=== PATIENT | male | born 1985 | race Two or more races ===

== ENCOUNTER 2017-09-29 14:41 | Emergency (ER) | payer OTHER ==
[~2017-09-29] VITALS: Ht 182.9 cm; Wt 95.3 kg
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
[2017-09-29] MEDS ORDERED: IBUPROFEN600 MG ORAL (16:44)
[2017-09-29] MEDS ORDERED: CYCLOBENZAPRINE10 MG ORAL (16:44)
[2017-09-29 16:50] VITALS: BP 155/90
== END 2017-09-29 17:00 | disposition home or self-care (01) ==
LOC: EDBD 14:41 → EMR 17:00
DX: M50.222 Other cervical disc displacement at C5-C6 level (principal); S20.219A Contusion of unspecified front wall of thorax, initial encounter; V43.52XA Car driver injured in collision with other type car in traffic accident, initial encounter; Y92.9 Unspecified place or not applicable
CPT/HCPCS: 71250; 72125; 99284

== ENCOUNTER 2018-02-05 23:34 | Emergency (ER) | payer OTHER ==
[~2018-02-05] VITALS: Ht 180.3 cm; Wt 97.5 kg
[~2018-02-05 23:34] MED LIST: CYCLOBENZAPRINE10 MG ORAL; IBUPROFEN600 MG ORAL
[2018-02-05 23:52] VITALS: BP 135/77
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
[2018-02-06 00:10] VITALS: BP 135/77
== END 2018-02-06 00:10 ==
LOC: EDBD 23:34 → EMR 23:57
DX: E86.0 Dehydration (principal); F10.129 Alcohol abuse with intoxication, unspecified
CPT/HCPCS: 99283

== ENCOUNTER 2018-03-01 02:50 | Emergency (ER) | payer OTHER ==
[~2018-03-01] VITALS: Ht 180.3 cm; Wt 92.5 kg
[2018-03-01 04:00] VITALS: BP 121/78
[2018-03-01] MEDS ORDERED: Isovue-300 100ml vial INJ PRN (04:30)
[2018-03-01] MEDS ORDERED: Dicyclomine HCl 10mg/5ml oral soln ORAL ONE (04:45)
[2018-03-01 05:42] LABS: APPEARANCE,URINE CLEAR; BILIRUBIN, URINE 1+ (NEGATIVE); GLUCOSE, URINE (UA) 1+ (NEGATIVE); KETONES,URINE 1+ (NEGATIVE); LEUKOCYTE ESTERASE ,URINE 1+ (NEGATIVE); NITRITE,URINE NEGATIVE (NEGATIVE); PH,URINE 5 (4.5-8.0); PROTEIN,URINE 2+ (NEGATIVE); UROBILINOGEN,URINE NORMAL MG/DL (0.0-1.0)
[2018-03-01 05:53] LABS: COLOR,URINE YELLOW
[2018-03-01 05:55] LABS: INR 1.1 (0.9-1.1)
[2018-03-01 05:57] LABS: HEMATOCRIT 52.3 % (42.0-52.0); HEMOGLOBIN 17.6 G/DL (14.2-18.0); MEAN CORPUSCULAR VOLUME 78 FL (80-99); PLATELET COUNT 348 K/UL (150-450); RED BLOOD COUNT 6.72 M/UL (4.70-6.10); RED CELL DISTRIBUTION WIDTH 12.5 % (11.6-14.8); WHITE BLOOD COUNT 20.4 K/UL (4.8-10.8)
[2018-03-01 06:00] VITALS: BP 128/74
[2018-03-01 06:08] LABS: ANION GAP 14 mmol/L (5-15); BLOOD UREA NITROGEN 41 mg/dL (7-18); CALCIUM 10.1 MG/DL (8.5-10.1); CARBON DIOXIDE 26 MMOL/L (21-32); CHLORIDE 94 MMOL/L (98-107); CREATININE 2.9 MG/DL (0.55-1.30); POTASSIUM 3.8 MMOL/L (3.5-5.1); SODIUM 134 MMOL/L (136-145)
[2018-03-01] MEDS ORDERED: Ampicillin/Sulbactam Sod 3 GM in NS 110 ML IVPB ONE (06:15)
[2018-03-01 06:19] LABS: ALANINE AMINOTRANSFERASE 38 U/L (12-78); ALKALINE PHOSPHATASE 69 U/L (46-116); ASPARTATE AMINO TRANSFERASE 39 U/L (15-37); BILIRUBIN,TOTAL 1.1 MG/DL (0.2-1.0)
[2018-03-01 06:22] LABS: BILIRUBIN,DIRECT 0.2 MG/DL (0.0-0.3)
[2018-03-01 07:14] LABS: CREATINE KINASE 1055 U/L (26-308)
--- NOTE | 2018-03-01 07:45 | Emergency Room Report ---
History of Present Illness General Chief Complaint: Abdominal Pain Source: Patient Present Illness HPI Patient is a 32-year-old male who presented after increased abdominal discomfort as well as diarrhea. Patient reports having episodes of vomiting as well as watery diarrhea he reports having severe abdominal cramping. He reported having some increased rash to his left inguinal area. He reports having subjective fever and chills. He states he was recently released from incarceration. Patient reports having no bloody stools. Allergies: Coded Allergies: No Known Allergies (Unverified , 09/29/17) Patient History Reviewed Nursing Documentation: PMH: Agreed; PSxH: Agreed Nursing Documentation-PM Past Medical History: No History, Except For Review of Systems All Other Systems: negative except mentioned in HPI Physical Exam Vital Signs Date Time Temp Pulse Resp B/P (MAP) Pulse Ox O2 Delivery O2 Flow Rate FiO2 03/01/18 02:53 99.6 126 13 125/82 93 99.7 03/01/18 04:00 Room Air Sp02 EP Interpretation: reviewed, normal General Appearance: normal inspection, alert, GCS 15, moderate distress Head: atraumatic ENT: normal ENT inspection, hearing grossly normal, normal voice Neck: normal inspection, full range of motion, supple, no bony tend Respiratory: normal inspection, lungs clear, normal breath sounds, no respiratory distress, no retraction, no wheezing Cardiovascular #1: regular rate, rhythm, no edema Gastrointestinal: normal inspection, normal bowel sounds, non tender, soft, no guarding, no hernia Genitourinary: no CVA tenderness Musculoskeletal: normal inspection, back normal, normal range of motion Neurologic: normal inspection, alert, oriented x3, responsive, sunglass clip attacher III-XII nml as tested, motor strength/tone normal, speech normal Psychiatric: normal inspection, judgement/insight normal, mood/affect normal Skin: normal inspection, normal color, no rash Medical Decision Making Diagnostic Impression: Primary Impression: Cellulitis Additional Impressions: Acute renal injury Substance abuse Rhabdomyolysis ER Course Patient presented for abdominal pain. Differential diagnoses included ischemic bowel, appendicitis, perforated viscus, abdominal aortic aneurysm, inferior myocardial infarction, viral gastroenteritis. Because of complexity of patient' s case laboratory testing and imaging studies were ordered. The patient was noted to have elevated white blood count as well as some evidence of cellulitis. The patient was started on IV antibiotics and given IV fluids. The patient's laboratory testing was notable for elevated white blood count as well as elevated BUN/creatinine. This may be related patient's recent substance use. The patient likely be transferred due to [facility] for further management of acute renal insufficiency leg cellulitis, and dehydration.The patient was discussed with Dr. Fitzpatrick who agreed to accept the patient for transfer to [facility]. Labs Test 03/01/18 05:10 03/01/18 05:20 Urine Color Yellow Urine Appearance Clear Urine pH 5 (4.5-8.0) Urine Specific [place] 1.030 (1.005-1.035) Urine Protein 2+ (NEGATIVE) Urine Glucose (UA) 1+ (NEGATIVE) Urine Ketones 1+ (NEGATIVE) Urine Occult Blood Negative (NEGATIVE) Urine Nitrite Negative (NEGATIVE) Urine Bilirubin 1+ (NEGATIVE) Urine Ictotest Negative (NEGATIVE) Urine Urobilinogen Normal MG/DL (0.0-1.0) Urine Leukocyte Esterase 1+ (NEGATIVE) Urine RBC 0-2 /HPF (0 - 0) Urine WBC 2-4 /HPF (0 - 0) Urine Squamous Epithelial Cells Occasional /LPF Urine Bacteria Few /HPF (NONE) Urine Opiates Screen Negative (NEGATIVE) Urine Barbiturates Screen Negative (NEGATIVE) Phencyclidine (PCP) Screen Negative (NEGATIVE) Urine Amphetamines Screen Positive (NEGATIVE) Urine Benzodiazepines Screen Negative (NEGATIVE) Urine Cocaine Screen Positive (NEGATIVE) Urine Marijuana (THC) Screen Negative (NEGATIVE) White Blood Count 20.4 K/UL (4.8-10.8) Red Blood Count 6.72 M/UL (4.70-6.10) Hemoglobin 17.6 G/DL (14.2-18.0) Hematocrit 52.3 % (42.0-52.0) Mean Corpuscular Volume 78 FL (80-99) Mean Corpuscular Hemoglobin 26.3 PG (27.0-31.0) Mean Corpuscular Hemoglobin Concent 33.8 G/DL (32.0-36.0) Red Cell Distribution Width 12.5 % (11.6-14.8) Platelet Count 348 K/UL (150-450) Mean Platelet Volume 7.4 FL (6.5-10.1) Neutrophils (%) (Auto) % (45.0-75.0) Lymphocytes (%) (Auto) % (20.0-45.0) Monocytes (%) (Auto) % (1.0-10.0) Eosinophils (%) (Auto) % (0.0-3.0) Basophils (%) (Auto) % (0.0-2.0) Differential Total Cells Counted 100 Neutrophils % (Manual) 82 % (45-75) Lymphocytes % (Manual) 7 % (20-45) Monocytes % (Manual) 9 % (1-10) Eosinophils % (Manual) 0 % (0-3) Basophils % (Manual) 0 % (0-2) Band Neutrophils 2 % (0-8) Platelet Estimate Adequate Platelet Morphology Normal Microcytosis 1+ Stomatocytes Occasional Prothrombin Time 11.4 SEC (9.30-11.50) Prothromb Time International Ratio 1.1 (0.9-1.1) Activated Partial Thromboplast Time 33 SEC (23-33) Sodium Level 134 MMOL/L (136-145) Potassium Level 3.8 MMOL/L (3.5-5.1) Chloride Level 94 MMOL/L (98-107) Carbon Dioxide Level 26 MMOL/L (21-32) Anion Gap 14 mmol/L (5-15) Blood Urea Nitrogen 41 mg/dL (7-18) Creatinine 2.9 MG/DL (0.55-1.30) Estimat Glomerular Filtration Rate 25.7 mL/min (>60) Glucose Level 129 MG/DL (74-106) Calcium Level 10.1 MG/DL (8.5-10.1) Total Bilirubin 1.1 MG/DL (0.2-1.0) Direct Bilirubin 0.2 MG/DL (0.0-0.3) Aspartate Amino Transf (AST/SGOT) 39 U/L (15-37) Alanine Aminotransferase (ALT/SGPT) 38 U/L (12-78) Alkaline Phosphatase 69 U/L (46-116) Total Creatine Kinase 1055 U/L (26-308) Total Protein 9.9 G/DL (6.4-8.2) Albumin 5.0 G/DL (3.4-5.0) Globulin 4.9 g/dL Albumin/Globulin Ratio 1.0 (1.0-2.7) Lipase 120 U/L (73-393) EKG Diagnostic Results Rhythm: NSR Last Vital Signs Date Time Temp Pulse Resp B/P (MAP) Pulse Ox O2 Delivery O2 Flow Rate FiO2 03/01/18 06:00 98.4 78 16 128/74 98 Room Air 98.4 Status: improved Disposition: XFER SHT-TRM HOSP Condition: Serious Referrals: [facility],REFERRING (PCP) Eduin Booth MD Mar 01, 2018 07:45
[2018-03-01 08:33] VITALS: BP 124/72
[2018-03-01 11:15] VITALS: BP 128/75
[2018-03-01 11:25] VITALS: BP 124/72
--- NOTE | 2018-03-01 12:47 | Diagnostic Imaging Report ---
Indication: Abdominal pain for 3 days Technique: Spiral acquisitions obtained through the abdomen and pelvis. No oral contrast utilized, per emergency room physician request No IV contrast utilized, per referring physician request.. Multiplanar reconstructions were generated. Total dose length product 687.11 mGycm. CTDIvol(s) 13.88 mGy. Dose reduction achieved using automated exposure control Comparison: None Findings: The appendix is normal. No evidence of diverticulosis or diverticulitis. No small bowel distention. No free or loculated intraperitoneal gas or fluid. The distal esophagus, stomach, and duodenum are unremarkable. Lack of IV contrast limits assessment of solid organs. The gallbladder is filled with stones. The liver is mildly hypoattenuating diffusely. The bile ducts, pancreas, spleen, adrenals, kidneys are all unremarkable. No renal or ureteral calculi, hydronephrosis, or hydroureter. No pelvic mass or adenopathy. No retroperitoneal or mesenteric mass or adenopathy. The included lung bases are clear. The bones are unremarkable except for evidence of prior hardware removal from the left femur Impression: No acute abnormality Cholelithiasis Slightly decreased hepatic attenuation, consistent with fatty change Incidental finding of left femoral medullary defect consistent with prior hardware removal This agrees with the preliminary interpretation provided overnight by [facility] teleradiology service. The CT scanner at [facility] is accredited by the [employer] and the scans are performed using protocols designed to limit radiation exposure to as low as reasonably achievable to attain images of sufficient resolution adequate for diagnostic evaluation.
== END 2018-03-01 11:25 | disposition short-term general hospital (02) ==
LOC: EMR 03:49
DX: L03.116 Cellulitis of left lower limb (principal); L03.115 Cellulitis of right lower limb; M62.82 Rhabdomyolysis; N17.9 Acute kidney failure, unspecified; F19.10 Other psychoactive substance abuse, uncomplicated
CPT/HCPCS: 36415; 74176; 80053; 80307; 81003; 82248; 82550; 83690; 85007; 85025; 85610; 85730; 96365; 96375; 99284; J0295; J2405

== ENCOUNTER 2018-05-04 15:51 | Emergency (ER) | payer OTHER ==
[~2018-05-04] VITALS: Ht 180.3 cm; Wt 90.7 kg
[2018-05-04] MEDS ORDERED: NKM (16:00)
[2018-05-04] MEDS ORDERED: Bacitracin Oint UD TOPIC ONE ×2 (16:15→17:15)
[2018-05-04] MEDS ORDERED: LET 3ml Soln TOPIC ONE (16:15)
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
[2018-05-04 16:30] VITALS: BP 135/88
--- NOTE | 2018-05-04 16:40 | Diagnostic Imaging Report ---
Indication: Pain Forearm pain Findings: 2 views of the left forearm were obtained. There is an acute fracture of the distal shaft of the ulna. The radius does not show definite fracture and there is no malalignment at the wrist or elbow definitely identified. IMPRESSION: Isolated the distal shaft fracture of the ulna several centimeters proximal to the wrist. No other fractures are seen
--- NOTE | 2018-05-04 16:52 | Diagnostic Imaging Report ---
Indication: Headache Technique: Contiguous 5 mm thick transaxial imaging of the head obtained in a Siemens Sensation [address] scanner. Soft tissue and bone windows generated. Automatic Exposure Control was utilized. Total Dose length Product (DLP): 1523.[address] Dose Index Volume (CTDIvol): 70.38 mGy Comparison: none Findings: The size and configuration of the cortical sulci, basal cisterns, and ventricles are within normal limits for age. There is no mass effect, midline shift, or edema identified. There is no evidence of acute hemorrhage or abnormal intra-axial or extra-axial fluid collections. The bones and soft tissues are unremarkable. Impression: No mass effect, edema or acute bleed. The CT scanner at [facility] is accredited by the [employer] and the scans are performed using dose optimization techniques as appropriate to a performed exam including Automatic Exposure control.
[2018-05-04] MEDS ORDERED: NORCO 5-325 TA1 EACH ORAL (17:28)
[2018-05-04] MEDS ORDERED: BACITRACIN-P28.35 GM TP (17:28)
--- NOTE | 2018-05-04 17:58 | Diagnostic Imaging Report ---
EXAM: XR Left Wrist Complete, 3 or More Views CLINICAL HISTORY: PAIN TECHNIQUE: Frontal, lateral and oblique views of the left wrist. COMPARISON: No relevant prior studies available. FINDINGS: Bones/joints: Acute fracture of the distal ulna. Probable old fracture of the ulnar styloid process. Soft tissues: Soft tissue swelling. IMPRESSION: Acute fracture of the distal ulna.
[2018-05-04 18:05] VITALS: BP 135/88
== END 2018-05-04 18:06 | disposition home or self-care (01) ==
LOC: EMR 17:43
DX: S01.01XA Laceration without foreign body of scalp, initial encounter (principal); S52.202A Unspecified fracture of shaft of left ulna, initial encounter for closed fracture; W01.0XXA Fall on same level from slipping, tripping and stumbling without subsequent striking against object, initial encounter; Y93.89 Activity, other specified; Y92.9 Unspecified place or not applicable
CPT/HCPCS: 12001; 70450; 73090; 73110; 99284; Z7502

== ENCOUNTER 2018-05-17 09:09 | Emergency (ER) | payer OTHER ==
[~2018-05-17] VITALS: Ht 180.3 cm; Wt 90.7 kg
[~2018-05-17 09:09] MED LIST changes: +BACITRACIN-P28.35 GM TP; +NKM; +NORCO 5-325 TA1 EACH ORAL
[2018-05-17 09:14] VITALS: BP 113/72
--- NOTE | 2018-05-17 10:48 | Emergency Room Report ---
History of Present Illness General Chief Complaint: Wound Recheck/Suture Removal Source: Patient Present Illness HPI Patient had a fall May 04. He received bernardo at that time. He also has a fracture of his ulna midshaft. He's here for staple removal. In addition he says the splint has been moving and wants D fracture rechecked at this time. He has an appointment with his orthopedic doctor next week. Denies fevers chills. He has some pain it's improving in the left forearm. He has been working. 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 Reviewed Nursing Documentation: PMH: Agreed; PSxH: Agreed Nursing Documentation-PMH Past Medical History: No History, Except For Hx Neurological Problems: No - back surgery, left femur surgery Physical Exam Vital Signs Date Time Temp Pulse Resp B/P (MAP) Pulse Ox O2 Delivery O2 Flow Rate FiO2 05/17/18 09:14 97.5 64 18 113/72 100 Room Air General Appearance: well appearing, no apparent distress Head: normocephalic ENT: hearing grossly normal, normal voice Neck: full range of motion, supple Respiratory: no respiratory distress, speaking full sentences Musculoskeletal: other - tenderness mid ulna. No deformity. Neurologic: alert, other - Distal neuro normal, grossly normal Psychiatric: mood/affect normal Skin: other - well healed scalp laceration Medical Decision Making Diagnostic Impression: Primary Impression: Removal of bernardo Additional Impression: Ulnar shaft fracture Qualified Codes: S52.222D - Displaced transverse fracture of shaft of left ulna, subsequent encounter for closed fracture with routine healing ER Course Patient presents for staple removal and reevaluation of ulnar fracture. X-rays will be obtained. Bernardo were removed. Splint and sling were applied. Patient felt this was not strong enough. This point was reapplied. This was checked by me. Neurovascular was intact and position good. Patient was advised to follow-up with his doctors. (Patient sleeping before splint eval.) Patient stable for outpatient observation and treatment. Last Vital Signs Date Time Temp Pulse Resp B/P (MAP) Pulse Ox O2 Delivery O2 Flow Rate FiO2 05/17/18 11:25 97.5 64 18 113/72 100 Room Air Status: improved Disposition: HOME, SELF-CARE Condition: Improved Referrals: [facility],REFERR[facility] (PCP) Wiley Rodríguez MD May 17, 2018 10:48
--- NOTE | 2018-05-17 11:02 | Diagnostic Imaging Report ---
Indication: Pain Forearm pain Findings: 2 views of the left forearm were obtained. There is a transverse fracture of the distal shaft of the ulna. No malalignment seen. Soft tissue swelling noted. IMPRESSION: Acute fracture distal ulna
[2018-05-17 11:25] VITALS: BP 113/72
== END 2018-05-17 11:26 | disposition home or self-care (01) ==
LOC: EMR 10:13
DX: Z48.02 Encounter for removal of sutures (principal); S52.202D Unspecified fracture of shaft of left ulna, subsequent encounter for closed fracture with routine healing; X58.XXXD Exposure to other specified factors, subsequent encounter
CPT/HCPCS: 29125; 99283